=== PATIENT | female | born 1960 | race Asian ===

== ENCOUNTER 2016-06-08 10:37 | Emergency (ER) | payer OTHER ==
[~2016-06-08] VITALS: Ht 188 cm; Wt 102.1 kg
[~2016-06-08 10:37] MED LIST: AMLO5TAB PO; ASPIRIN ADULT L81 MG PO; GLIP10TA55 PO; LISI20TA31 PO; METF500T PO; NITR0.4S2 SL; TRAM50TA PO
[2016-06-08 10:40] VITALS: TEMP 98
[2016-06-08 11:22] LABS: PLATELET COUNT 136 K/uL (152-353)
[2016-06-08 11:40] LABS: POTASSIUM 3.2 mmol/L (3.6-5.2); SODIUM 136 mmol/L (136-145)
[2016-06-08 13:47] VITALS: BP 132/84
== END 2016-06-08 13:47 | disposition short-term general hospital (02) ==
LOC: ED 10:37
DX: R07.89 Other chest pain (principal); E11.65 Type 2 diabetes mellitus with hyperglycemia; B96.81 Helicobacter pylori [H. pylori] as the cause of diseases classified elsewhere
CPT/HCPCS: 36415; 80053; 82550; 83036; 84484; 85027; 86318; 93005; 99283

== ENCOUNTER 2016-06-08 13:51 | Outpatient (CLI) | payer OTHER | END 2016-06-08 14:20 | disposition short-term general hospital (02) | LOC: AMB 13:51 | DX: R07.89 Other chest pain (principal); E11.65 Type 2 diabetes mellitus with hyperglycemia; B96.81 Helicobacter pylori [H. pylori] as the cause of diseases classified elsewhere | CPT/HCPCS: A0425; A0429 ==

== ENCOUNTER 2016-08-12 14:30 | Outpatient (CLI) | payer OTHER | END 2016-08-12 19:45 | disposition home or self-care (01) | LOC: RAD 14:30 | DX: M54.2 Cervicalgia (principal) ==

== ENCOUNTER 2016-10-01 11:50 | Outpatient (CLI) | payer OTHER | END 2016-10-01 19:07 | disposition home or self-care (01) | LOC: RAD 11:50 | DX: M54.5 Low back pain (principal) ==

== ENCOUNTER 2016-10-08 13:45 | Outpatient (CLI) | payer OTHER | END 2016-10-08 19:16 | disposition home or self-care (01) | LOC: MAMMO 13:45 | DX: N63 Unspecified lump in breast (principal) | CPT/HCPCS: G0206-TC ==

== ENCOUNTER 2016-10-14 11:23 | Outpatient (CLI) | payer OTHER | END 2016-10-14 13:00 | disposition home or self-care (01) | LOC: US 11:23 | DX: R92.8 Other abnormal and inconclusive findings on diagnostic imaging of breast (principal) ==

== ENCOUNTER 2017-03-13 10:27 | Outpatient (CLI) | payer OTHER | END 2017-03-13 19:09 | disposition home or self-care (01) | LOC: US 10:27 | DX: R94.5 Abnormal results of liver function studies (principal) ==

== ENCOUNTER 2017-05-25 10:47 | Outpatient (CLI) | payer OTHER | END 2017-05-25 12:20 | disposition home or self-care (01) | LOC: MAMMO 10:47 → US 13:30 | DX: N63.20 Unspecified lump in the left breast, unspecified quadrant (principal); R92.8 Other abnormal and inconclusive findings on diagnostic imaging of breast ==

== ENCOUNTER 2018-02-17 14:07 | Outpatient (CLI) | payer BC | END 2018-02-17 21:44 | disposition home or self-care (01) | LOC: RAD 14:07 | DX: J20.9 Acute bronchitis, unspecified (principal) ==

== ENCOUNTER 2018-03-05 11:28 | Outpatient (CLI) | payer BC ==
[2018-03-05 14:40] LABS: PLATELET COUNT 144 K/uL (152-353)
[2018-03-05 14:49] LABS: POTASSIUM 3.1 mmol/L (3.6-5.2)
== END 2018-03-05 19:07 | disposition home or self-care (01) ==
LOC: LABW 11:28
PROVIDERS: Physician Assistant
DX: D64.9 Anemia, unspecified (principal); E11.9 Type 2 diabetes mellitus without complications; K74.60 Unspecified cirrhosis of liver
CPT/HCPCS: 36415; 80053; 81000; 82043; 82570; 83036; 84439; 84443; 85027

== ENCOUNTER 2018-04-16 07:28 | Outpatient (CLI) | payer OTHER, BC | END 2018-04-16 19:45 | disposition home or self-care (01) | LOC: LABW 07:28 | PROVIDERS: Nurse Practitioner Adult Health | DX: E78.2 Mixed hyperlipidemia (principal); Z79.899 Other long term (current) drug therapy | CPT/HCPCS: 36415; 80061; 80076 ==

== ENCOUNTER 2018-05-28 11:06 | Outpatient (CLI) | payer OTHER, BC | END 2018-05-28 22:16 | disposition home or self-care (01) | LOC: MAMMO 11:06 | DX: Z12.31 Encounter for screening mammogram for malignant neoplasm of breast (principal) ==

== ENCOUNTER 2018-07-14 10:00 | Outpatient (CLI) | payer OTHER ==
[2018-07-14 10:34] LABS: PLATELET COUNT 149 K/uL (152-353)
[2018-07-14 10:59] LABS: POTASSIUM 2.9 mmol/L (3.6-5.2)
== END 2018-07-14 19:15 | disposition home or self-care (01) ==
LOC: LABW 10:00
PROVIDERS: Internal Medicine
DX: R94.5 Abnormal results of liver function studies (principal); E11.9 Type 2 diabetes mellitus without complications
CPT/HCPCS: 36415; 80053; 80061; 81000; 82043; 82570; 82728; 83036; 83540; 84443; 84466; 85027

== ENCOUNTER 2018-07-14 10:08 | Day surgery (SDC) | payer OTHER | END 2018-07-14 16:02 | disposition home or self-care (01) | LOC: OR 10:08 | PROC: 0DJD8ZZ Inspection of Lower Intestinal Tract, Via Natural or Artificial Opening Endoscopic (ICD-10-PCS; principal; 2018-07-14) | DX: K64.8 Other hemorrhoids (principal); Z12.11 Encounter for screening for malignant neoplasm of colon; D64.89 Other specified anemias | CPT/HCPCS: J0461; J2001; J2250; J2405; J2704 ==

== ENCOUNTER 2018-10-13 21:14 | Emergency (ER) | payer OTHER ==
[~2018-10-13] VITALS: Ht 188 cm; Wt 90.7 kg
[2018-10-13 22:05] VITALS: BP 175/84; TEMP 98.2
== END 2018-10-13 22:12 | disposition home or self-care (01) ==
LOC: ED 21:14
DX: L29.8 Other pruritus (principal); T50.995A Adverse effect of other drugs, medicaments and biological substances, initial encounter; Y92.89 Other specified places as the place of occurrence of the external cause
CPT/HCPCS: 96372; 99283; J1200; J2930

== ENCOUNTER 2019-01-11 13:57 | Outpatient (CLI) | payer OTHER ==
[2019-01-11 15:08] LABS: PLATELET COUNT 142 K/uL (152-353)
== END 2019-01-11 23:19 | disposition home or self-care (01) ==
LOC: LABW 13:57 → RAD 13:57
PROVIDERS: Physician Assistant
DX: K74.69 Other cirrhosis of liver (principal); R10.84 Generalized abdominal pain; R07.81 Pleurodynia
CPT/HCPCS: 36415; 80053; 85027; 85610

== ENCOUNTER 2019-03-16 11:14 | Outpatient (CLI) | payer OTHER | END 2019-03-16 23:00 | disposition home or self-care (01) | LOC: MRI 11:14 | DX: M86.172 Other acute osteomyelitis, left ankle and foot (principal) | CPT/HCPCS: 82565; 84520; A9576 ==